=== PATIENT | male | born 1960 | race Two or more races ===

== ENCOUNTER 2018-05-17 14:47 | Emergency (ER) | payer SELFPAY ==
[~2018-05-17] VITALS: Ht 154.9 cm; Wt 111.6 kg
[~2018-05-17 14:47] MED LIST: ASPI-630 PO; ATEN50TA PO; CIPR500T94 PO; CITA10TA8 PO; CLON0.5T11 PO; CLOP75TA PO; DOXY100T PO; HYDR-3164 PO; LISI-334 PO; METR500T PO; MULT1TAB52 PO
[2018-05-17 16:29] VITALS: BP 135/84
--- NOTE | 2018-05-17 17:33 | RAD ---
CHEST PA LATERAL History: PRODUCTIVE COUGH, CHILLS, FEVER TODAY AT DR OFFICE Comparison: January 05, 2016 Findings: 2 views of the chest are submitted. There is mild right infrahilar opacity, possibly mild atelectasis. There is no dependent pleural fluid or pneumothorax. Heart size is upper limits of normal. There is somewhat tortuous thoracic aorta. Impression: 1. There is mild right infrahilar opacity, possibly mild atelectasis. Electronically signed by: Margarito Shane MD (05/17/2018 5:30 PM) [facility]
--- NOTE | 2018-05-17 17:37 | PHYS DOC ---
Past Medical History Past Medical History: CAD, High Cholesterol, Hypertension, [place], Other Additional Past Medical Histor: CARDIAC ARREST Past Surgical History: Angioplasty, Other Additional Past Surgical Histo: rt arm surgery, CARDIAC stent Alcohol Use: Occasionally Drug Use: None Adult General Chief Complaint Chief Complaint: SORE THROAT HPI HPI Patient is a 57 year old male with a history of CAD, hypertension, high cholesterol, who presents today to be evaluated for pneumonia. Patient was seen at an outpatient clinic, he was diagnosed with strep, this send him to the ED to be evaluated for pneumonia. Patient has had a cough and sore throat since Monday. Denies any fever. Denies any nasal congestion. Review of Systems Review of Systems Constitutional: Denies fever or chills [] Eyes: Denies change in visual acuity, redness, or eye pain [] HENT: Reports sore throat. Denies nasal congestion Respiratory: Reports cough, denies shortness of breath [] Cardiovascular: No additional information not addressed in HPI [] GI: Denies abdominal pain, nausea, vomiting, bloody stools or diarrhea [] : Denies dysuria or hematuria [] Musculoskeletal: Denies back pain or joint pain [] Integument: Denies rash or skin lesions [] Neurologic: Denies headache, focal weakness or sensory changes [] All other systems were reviewed and found to be within normal limits, except as documented in this note. Allergies Allergies Allergies Coded Allergies Type Severity Reaction Last Updated Verified Penicillins Allergy Intermediate rash 03/09/15 Yes nitroglycerin Allergy Intermediate bp drops 03/09/15 Yes Physical Exam Physical Exam Constitutional: Well developed, well nourished, no acute distress, non-toxic appearance. [] HENT: Normocephalic, atraumatic, bilateral external ears normal, oropharynx moist, no oral exudates, nose normal. [] +2 Tonsils with mild erythema and exudate bilaterally, midline uvula. +2 anterior cervical adenopathy. Eyes: PERRLA, EOMI, conjunctiva normal, no discharge. [] Neck: Normal range of motion, no tenderness, supple, no stridor. [] Cardiovascular:Heart rate regular rhythm, no murmur [] Lungs & Thorax: Bilateral breath sounds clear to auscultation [] Abdomen: Bowel sounds normal, soft, no tenderness, no masses, no pulsatile masses. [] Skin: Warm, dry, no erythema, no rash. [] Back: No tenderness, no CVA tenderness. [] Extremities: No tenderness, no cyanosis, no clubbing, ROM intact, no edema. [] Neurologic: Alert and oriented X 3, normal motor function, normal sensory function, no focal deficits noted. [] Psychologic: Affect normal, judgement normal, mood normal. [] Current Patient Data Vital Signs Vital Signs Date Time Temp Pulse Resp B/P (MAP) Pulse Ox O2 Delivery O2 Flow Rate FiO2 05/17/18 16:29 98.9 77 18 135/84 (101) 96 Room Air 98.9 EKG EKG [] Radiology/Procedures Radiology/Procedures []PROCEDURE: CHEST PA & LATERAL CHEST PA LATERAL History: PRODUCTIVE COUGH, CHILLS, FEVER TODAY AT DR OFFICE Comparison: January 05, 2016 Findings: 2 views of the chest are submitted. There is mild right infrahilar opacity, possibly mild atelectasis. There is no dependent pleural fluid or pneumothorax. Heart size is upper limits of normal. There is somewhat tortuous thoracic aorta. Impression: 1. There is mild right infrahilar opacity, possibly mild atelectasis. Electronically signed by: Ann Marie Meeks MD (05/17/2018 5:30 PM) [facility] DICTATED and SIGNED BY: ANN MARIE MEEKS MD DATE: 05/17/181729 Course & Med Decision Making Course & Med Decision Making Pertinent Labs and Imaging studies reviewed. (See chart for details) This is a 57-year-old male patient presented to the ED today to be evaluated for pneumonia. Patient was seen at an outpatient clinic, was diagnosed with strep and sent to the ED to be evaluated for pneumonia. Chest x-ray was ordered. Chest x-ray interpreted by radiologist is negative for any acute findings, noted for atelectasis. Patient is afebrile. Patient was discharged with levaquin for the strep infection, instructed to take deep breaths 10 times every hour while awake. Follow-up with primary care doctor next week. Dragon Disclaimer Dragon Disclaimer This electronic medical record was generated, in whole or in part, using a voice recognition dictation system. Departure Departure Impression: Primary Impression: Cough Additional Impression: Acute streptococcal pharyngitis Disposition: HOME, SELF-CARE Condition: STABLE Referrals: UNKNOWN PCP NAME (PCP) follow up in 1-2 weeks with your doctor Patient Instructions: Cough, Adult, [id number], Strep Throat Additional Instructions: You were evaluated in the emergency room, a chest x-ray is negative for pneumonia, we put you on amoxicillin. Ensure you complete it. Use saltwater gargles as needed. Take Tylenol as needed for pain or fever. You can also take Motrin. Follow-up with your doctor next week. Scripts Levofloxacin (LEVAQUIN) 500 Mg Tablet 1 TAB PO DAILY, #7 TAB Prov: MYRA TORRES APRN 05/17/18 Problem Qualifiers MYRA TORRES APRN May 17, 2018 17:37
[2018-05-17] MEDS ORDERED: AZIT250T PO (17:48)
[2018-05-17] MEDS ORDERED: LEVO500T59 PO (17:57)
== END 2018-05-17 18:06 | disposition home or self-care (01) ==
LOC: ER 14:47
DX: J02.0 Streptococcal pharyngitis (principal); B95.5 Unspecified streptococcus as the cause of diseases classified elsewhere; I25.10 Atherosclerotic heart disease of native coronary artery without angina pectoris; E78.00 Pure hypercholesterolemia, unspecified; I10 Essential (primary) hypertension; I25.2 Old myocardial infarction; Z98.61 Coronary angioplasty status; Z88.0 Allergy status to penicillin; Z88.8 Allergy status to other drugs, medicaments and biological substances
CPT/HCPCS: 71046; 99283

== ENCOUNTER 2019-02-04 10:28 | Inpatient (IN) | payer SELFPAY ==
[~2019-02-04] VITALS: Ht 149.9 cm; Wt 109.5 kg
[~2019-02-04 10:28] MED LIST changes: +AZIT250T PO; +CLON-77 PO; -CLON0.5T11 PO; +LEVO500T59 PO
[2019-02-04 11:12] LABS: BASO # 0.1 x10^3/uL (0.0-0.2); BASO % 1 % (0-3); EOS % 1 % (0-3); HEMATOCRIT 50.5 % (39.0-53.0); HEMOGLOBIN 17.2 g/dL (13.0-17.5); LYMPH # 1.5 x10^3/uL (1.0-4.8); LYMPH % 21 % (24-48); MEAN CORPUSCULAR HEMOGLOBIN 30 pg (25-35); MEAN CORPUSCULAR HGB CONC 34 g/dL (31-37); MEAN CORPUSCULAR VOLUME 88 fL (79-100); MONO # 0.9 x10^3/uL (0.0-1.1); MONO % 12 % (0-9); NEUT # 4.6 x10^3/uL (1.8-7.7); NEUT % 65 % (31-73); PLATELET COUNT 239 x10^3/uL (140-400); RED BLOOD COUNT 5.73 x10^6/uL (4.30-5.70); RED CELL DISTRIBUTION WIDTH 15.3 % (11.5-14.5); WHITE BLOOD COUNT 7.1 x10^3/uL (4.0-11.0)
[2019-02-04 11:22] LABS: CALCIUM 9.1 mg/dL (8.5-10.1); CREATININE 0.9 mg/dL (0.7-1.3); GFR 87.3; POTASSIUM 3.7 mmol/L (3.5-5.1)
[2019-02-04 11:29] LABS: ALBUMIN 3.7 g/dL (3.4-5.0); ALBUMIN/GLOBULIN RATIO 0.8 (1.0-1.7); MAGNESIUM 1.9 mg/dL (1.8-2.4); TOTAL BILIRUBIN 0.7 mg/dL (0.2-1.0); TOTAL PROTEIN 8.1 g/dL (6.4-8.2)
--- NOTE | 2019-02-04 11:32 | PHYS DOC ---
Past Medical History Past Medical History: CAD, High Cholesterol, Hypertension, [place], Other Additional Past Medical Histor: CARDIAC ARREST Past Surgical History: Angioplasty, Other Additional Past Surgical Histo: rt arm surgery, CARDIAC stent Alcohol Use: Occasionally Drug Use: None Adult General Chief Complaint Chief Complaint: HYPERTENSION HPI HPI Patient is a 58 year old male patient with history of hypertension, dyslipidemia, coronary artery disease status post angioplasty, morbid obesity and family history of coronary artery disease who presents with complaint of ch est pain and high blood pressure. Patient complaining of intermittent episodes of substernal chest pain that started yesterday afternoon and last for a few seconds without shortness of breath, nausea and vomiting, palpitation. Patient rated his pain as 8/10. Patient states she did not have any chest pain today but his blood pressure was 180s over 100. Patient states he had cystoscopy condition going on and lost his [id number] because of heart attack a few days ago and wants to make sure he is fine. Review of Systems Review of Systems Constitutional: Denies fever or chills [] Eyes: Denies change in visual acuity, redness, or eye pain [] HENT: Denies nasal congestion or sore throat [] Respiratory: Denies cough or shortness of breath [] Cardiovascular: No additional information not addressed in HPI [] GI: Denies abdominal pain, nausea, vomiting, bloody stools or diarrhea [] : Denies dysuria or hematuria [] Musculoskeletal: Denies back pain or joint pain [] Integument: Denies rash or skin lesions [] Neurologic: Denies headache, focal weakness or sensory changes [] Endocrine: Denies polyuria or polydipsia [] All other systems were reviewed and found to be within normal limits, except as documented in this note. Allergies Allergies Allergies Coded Allergies Type Severity Reaction Last Updated Verified Penicillins Allergy Intermediate rash 03/09/15 Yes nitroglycerin Allergy Intermediate bp drops 03/09/15 Yes Physical Exam Physical Exam Constitutional: Well developed, well nourished, no acute distress, non-toxic appearance. [] HENT: Normocephalic, atraumatic, bilateral external ears normal, oropharynx moist, no oral exudates, nose normal. [] Eyes: PERRLA, EOMI, conjunctiva normal, no discharge. [] Neck: Normal range of motion, no tenderness, supple, no stridor. [] Cardiovascular:Heart rate regular rhythm, no murmur [] Lungs & Thorax: Bilateral breath sounds clear to auscultation [] Abdomen: Bowel sounds normal, soft, no tenderness, no masses, no pulsatile masses. [] Skin: Warm, dry, no erythema, no rash. [] Back: No tenderness, no CVA tenderness. [] Extremities: No tenderness, no cyanosis, no clubbing, ROM intact, no edema. [] Neurologic: Alert and oriented X 3, normal motor function, normal sensory function, no focal deficits noted. [] Psychologic: Affect normal, judgement normal, mood normal. [] Current Patient Data Vital Signs Vital Signs Date Time Temp Pulse Resp B/P (MAP) Pulse Ox O2 Delivery O2 Flow Rate FiO2 02/04/19 10:41 98.4 69 20 186/88 (120) 95 Room Air 98.4 Lab Values Laboratory Tests Test 02/04/19 10:55 White Blood Count 7.1 x10^3/uL (4.0-11.0) Red Blood Count 5.73 x10^6/uL (4.30-5.70) H Hemoglobin 17.2 g/dL (13.0-17.5) Hematocrit 50.5 % (39.0-53.0) Mean Corpuscular Volume 88 fL (79-100) Mean Corpuscular Hemoglobin 30 pg (25-35) Mean Corpuscular Hemoglobin Concent 34 g/dL (31-37) Red Cell Distribution Width 15.3 % (11.5-14.5) H Platelet Count 239 x10^3/uL (140-400) Neutrophils (%) (Auto) 65 % (31-73) Lymphocytes (%) (Auto) 21 % (24-48) L Monocytes (%) (Auto) 12 % (0-9) H Eosinophils (%) (Auto) 1 % (0-3) Basophils (%) (Auto) 1 % (0-3) Neutrophils # (Auto) 4.6 x10^3/uL (1.8-7.7) Lymphocytes # (Auto) 1.5 x10^3/uL (1.0-4.8) Monocytes # (Auto) 0.9 x10^3/uL (0.0-1.1) Eosinophils # (Auto) 0.0 x10^3/uL (0.0-0.7) Basophils # (Auto) 0.1 x10^3/uL (0.0-0.2) Prothrombin Time 12.3 SEC (11.7-14.0) Prothrombin Time INR 0.9 (0.8-1.1) Sodium Level 136 mmol/L (136-145) Potassium Level 3.7 mmol/L (3.5-5.1) Chloride Level 101 mmol/L (98-107) Carbon Dioxide Level 30 mmol/L (21-32) Anion Gap 5 (6-14) L Blood Urea Nitrogen 17 mg/dL (8-26) Creatinine 0.9 mg/dL (0.7-1.3) Estimated GFR (Cockcroft-Gault) 87.3 BUN/Creatinine Ratio 19 (6-20) Glucose Level 134 mg/dL (70-99) H Calcium Level 9.1 mg/dL (8.5-10.1) Magnesium Level 1.9 mg/dL (1.8-2.4) Total Bilirubin 0.7 mg/dL (0.2-1.0) Aspartate Amino Transferase (AST) 23 U/L (15-37) Alanine Aminotransferase (ALT) 39 U/L (16-63) Alkaline Phosphatase 98 U/L (46-116) Creatine Kinase 104 U/L (39-308) Troponin I Quantitative < 0.017 ng/mL (0.000-0.055) XJ-Dlh-C-Type Natriuretic Peptide 90 pg/mL (0-124) Total Protein 8.1 g/dL (6.4-8.2) Albumin 3.7 g/dL (3.4-5.0) Albumin/Globulin Ratio 0.8 (1.0-1.7) L Lipase 171 U/L (73-393) Laboratory Tests 02/04/19 10:55 Laboratory Tests 02/04/19 10:55 EKG EKG EKG interpreted by me. EKG at 1051 showed normal sinus rhythm at rate of 63, left fourth axis, nonspecific T-wave abnormalities, no acute ST and T-wave elevation. Radiology/Procedures Radiology/Procedures [][facility] [address] [facility] [place], [place] [id number] IMAGING REPORT Signed PATIENT: BRANDI STRAUSSCCOUNT: [id number] : 1960 LOCATION: ER AGE: 58 SEX: M EXAM STATUS: REG ER ORD. PHYSICIAN: MONIE CRUZ MD REASON: chest pain PROCEDURE: PORTABLE CHEST 1V PORTABLE CHEST 1V Clinical indications: Chest pain. COMPARISON: May 17 2018. Findings: No acute lung infiltrate or pleural effusion or pulmonary edema or lung mass or pneumothorax is seen. The heart size, pulmonary vasculature, mediastinum and both nidhi are unremarkable. Impression: No acute radiographic abnormality is seen. Electronically signed by: Rocael Gray MD (02/04/2019 11:34 AM) [place] [id number] DICTATED and SIGNED BY: ROCAEL GRAY MD DATE: 02/04/19 1134 Course & Med Decision Making Course & Med Decision Making Pertinent Labs and Imaging studies reviewed. (See chart for details) Evaluation of patient in ER showed 58-year-old male patient heart score of 6 presented with complaining of episode of chest pain and elevation of blood pressure. Patient had blood sugar of 180s that gradually decreased without treatment. Patient requiring admission for further evaluation and treatment. Discussed with Dr. Tapia who is in agreement with admission. Discussed findings and plan with patient and family, who acknowledge understanding and agreement. Dragon Disclaimer Dragon Disclaimer This electronic medical record was generated, in whole or in part, using a voice recognition dictation system. Departure Departure Impression: Primary Impression: Acute chest pain Additional Impressions: Accelerated hypertension Morbid obesity Anxiety about health Disposition: 09 ADMITTED INPATIENT (at 1236) Admitting Physician: JINNY (Dr Tapia accepted the admission at 1235) Condition: IMPROVED Referrals: NO PCP (PCP) The HEART Score for CP Pts HEART Score for Chest Pain: HEART Score for Chest Pain Response (Comments) Value History Moderately Suspicious 1 ECG Nonspecific Repolarizatio 1 Age >45 - < 65 1 Risk Factors >3 Risk Factors or Hx CAD 2 Troponin < Normal Limit 0 Total 5 Risk Factors: Risk Factors: DM, Current or recent (<one month) smoker, HTN, HLP, family history of CAD, obesity. Risk Scores: Score 0 - 3: 2.5% MACE over next 6 weeks - Discharge Home Score 4 - 6: 20.3% MACE over next 6 weeks - Admit for Clinical Observation Score 7 - 10: 72.7% MACE over next 6 weeks - Early Invasive Strategies Problem Qualifiers MONIE CRUZ MD Feb 04, 2019 11:32
[2019-02-04 11:35] LABS: PROTHROMBIN TIME PATIENT 12.3 SEC (11.7-14.0)
--- NOTE | 2019-02-04 11:37 | RAD ---
PORTABLE CHEST 1V Clinical indications: Chest pain. COMPARISON: May 17 2018. Findings: No acute lung infiltrate or pleural effusion or pulmonary edema or lung mass or pneumothorax is seen. The heart size, pulmonary vasculature, mediastinum and both nidhi are unremarkable. Impression: No acute radiographic abnormality is seen. Electronically signed by: Yousif Gray MD (02/04/2019 11:34 AM) [facility]
--- NOTE | 2019-02-04 11:42 | EKG ---
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
--- NOTE | 2019-02-04 12:36 | PDOC1 ---
History and Physical Date of Admission Date of Admission DATE: 02/04/19 TIME: 12:35 Identification/Chief Complaint Chief Complaint Chest pain Source Source: Patient History of Present Illness History of Present Illness Mr. Apple is a pleasant 57yo M w/ PMHx HTN, TIA, CAD (prior [place]), prediabetes recently now diagnosed as diabetes who p/w chest pain and left arm pain. Has had intermittent episodes of substernal chest pain that started yesterday afternoon and last for a few seconds. He denies shortness of breath, nausea and vomiting, palpitation. Patient rated his pain as 8/10. Patient states she did not have any chest pain today but his blood pressure was 180s over 100. He is worried because his [id number] because of heart attack a few days ago and wants to make sure he is fine. 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 He also had a TIA 11 months ago and was recently told his prediabetes has progressed to diabetes. CXR clear. EKG NSR with non-specific twave changes. Negative troponin. Admitted for further BP treatment and troponin. Past Medical History Cardiovascular: CAD, HTN, [place], Hyperlipidemia CENTRAL NERVOUS SYSTEM: TIA Psych: Anxiety, Depression Past Surgical History Past Surgical History: Other Family History Family History: Coronary Artery Disease, Diabetes Family History: Parent Social History Smoke: No ALCOHOL: rare Drugs: None Current Medications Current Medications Active Scripts Active Levaquin (Levofloxacin) 500 Mg Tablet 1 Tab PO DAILY Celexa (Citalopram Hydrobromide) 10 Mg Tablet 10 Mg PO DAILY 30 Days [place] 5-325 Tablet (Acetaminophen/Hydrocodone Bitart) 1 Each Tablet 1 Tab PO PRN Q6HRS PRN Reported Lisinopril 20 Mg Tablet 20 Mg PO DAILY Clonazepam 0.5 Mg Tablet 0.5 Tab PO DAILY Clopidogrel (Clopidogrel Bisulfate) 75 Mg Tablet 75 Mg PO DAILY Atenolol 50 Mg Tablet 1 Tab PO BID Aspirin 81 Mg Tab.chew 1 Tab PO DAILY Allergies Allergies: Coded Allergies: Penicillins (Verified Allergy, Intermediate, rash, 03/09/15) nitroglycerin (Verified Allergy, Intermediate, bp drops, 03/09/15) ROS General: YES: Fatigue, Malaise; No: Chills, Night Sweats, Appetite, Other PSYCHOLOGICAL ROS: YES: Anxiety, Depression; No: Behavioral Disorder, Concentration difficultie, Decreased libido, Disorientation, Hallucinations, Hostility, Irritablity, Memory difficulties, Mood Swings, Obsessive thoughts, Physical abuse, Sexual abuse, Sleep d isturbances, Suicidal ideation, Other Eyes: No Blurry vision, No Decreased vision, No Double vision, No Dry eyes, No Excessive tearing, No Eye Pain, No Itchy Eyes, No Loss of vision, No Photophobia, No Scotomata, No Uses contacts, No Uses glasses, No Other HEENT: No: Heacaches, Visual Changes, Hearing change, Nasal congestion, Nasal discharge, Oral lesions, Sinus pain, Sore Throat, Epistaxis, Sneezing, Snoring, Tinnitus, Vertigo, Vocal changes, Other ALLERGY AND IMMUNOLOGY: No: Hives, Insect Bite Sensitivity, Itchy/Watery Eyes, Nasal Congestion, Post Nasal Drip, Seasonal Allergies, Other Hematological and Lymphatic: No: Bleeding Problems, Blood Clots, Blood Transfusions, Brusing, Night Sweats, Pallor, Swollen Lymph Nodes, Other ENDOCRINE: No: Breast Changes, Galactorrhea, Hair Pattern Changes, Hot Flashes, Malaise/lethargy, Mood Swings, Palpitations, Polydipsia/polyuria, Skin Changes, Temperature Intolerance, Unexpected Weight Changes, Other Breast: No New/Changing Breast Lumps, No Nipple changes, No Nipple discharge, No Other Respiratory: No: Cough, Hemoptysis, Orthopnea, Pleuritic Pain, Shortness of breath, SOB with excertion, Sputum Changes, Stridor, Tachypnea, Wheezing, Other Cardiovascular: yes Chest Pain, yes Palpitations; No Orthopnea, No Paroxysmal Noc. Dyspnea, No Edema, No Lt Headedness, No Other Gastrointestinal: No Nausea, No Vomiting, No Abdominal Pain, No Diarrhea, No Constipation, No Melena, No Hematochezia, No Other Genitourinary: No Dysuria, No Frequency, No Incontinence, No Hematuria, No Retention, No Discharge, No Urgency, No Pain, No Flank Pain, No Other, No , No , No , No , No , No , No Musculoskeletal: No Gait Disturbance, No Joint Pain, No Joint Stiffness, No Joint Swelling, No Muscle Pain, No Muscular Weakness, No Pain In:, No Swelling In:, No Other Neurological: No Behavorial Changes, No Bowel/Bladder ControlChng, No Confusion, No Dizziness, No Gait Disturbance, No Headaches, No Impaired Coord/balance, No Memory Loss, No Numbness/Tingling, No Seizures, No Speech Problems, No Tremors, No Visual Changes, No Weakness, No Other Skin: No Dry Skin, No Eczema, No Hair Changes, No Lumps, No Mole Changes, No Mottling, No Nail Changes, No Pruritus, No Rash, No Skin Lesion Changes, No Other, No Acne Physical Exam General: Alert, Oriented X3, Cooperative, No acute distress HEENT: Atraumatic, PERRLA, EOMI, Mucous membr. moist/pink Lungs: Clear to auscultation, Normal air movement Heart: S1S2, RRR, no thrills, no rubs, no gallops, no murmurs Abdomen: Normal bowel sounds, Soft, No tenderness, No hepatosplenomegaly, No masses Rectal Exam: not examined Extremities: No clubbing, No cyanosis, No edema, Normal pulses, No tenderness/swelling Skin: No rashes, No breakdown, No significant lesion Neuro: Normal gait, Normal speech, Strength at 5/5 X4 ext, Normal tone, Sensation intact, Cranial nerves 3-12 NL, Reflexes 2+ Psych/Mental Status: Mental status NL, Mood NL Vitals Vitals Vital Signs Date Time Temp Pulse Resp B/P (MAP) Pulse Ox O2 Delivery O2 Flow Rate FiO2 02/04/19 10:41 98.4 69 20 186/88 (120) 95 Room Air 98.4 Labs Labs Laboratory Tests Test 02/04/19 10:55 White Blood Count 7.1 x10^3/uL (4.0-11.0) Red Blood Count 5.73 x10^6/uL (4.30-5.70) Hemoglobin 17.2 g/dL (13.0-17.5) Hematocrit 50.5 % (39.0-53.0) Mean Corpuscular Volume 88 fL (79-100) Mean Corpuscular Hemoglobin 30 pg (25-35) Mean Corpuscular Hemoglobin Concent 34 g/dL (31-37) Red Cell Distribution Width 15.3 % (11.5-14.5) Platelet Count 239 x10^3/uL (140-400) Neutrophils (%) (Auto) 65 % (31-73) Lymphocytes (%) (Auto) 21 % (24-48) Monocytes (%) (Auto) 12 % (0-9) Eosinophils (%) (Auto) 1 % (0-3) Basophils (%) (Auto) 1 % (0-3) Neutrophils # (Auto) 4.6 x10^3/uL (1.8-7.7) Lymphocytes # (Auto) 1.5 x10^3/uL (1.0-4.8) Monocytes # (Auto) 0.9 x10^3/uL (0.0-1.1) Eosinophils # (Auto) 0.0 x10^3/uL (0.0-0.7) Basophils # (Auto) 0.1 x10^3/uL (0.0-0.2) Prothrombin Time 12.3 SEC (11.7-14.0) Prothromb Time International Ratio 0.9 (0.8-1.1) Sodium Level 136 mmol/L (136-145) Potassium Level 3.7 mmol/L (3.5-5.1) Chloride Level 101 mmol/L (98-107) Carbon Dioxide Level 30 mmol/L (21-32) Anion Gap 5 (6-14) Blood Urea Nitrogen 17 mg/dL (8-26) Creatinine 0.9 mg/dL (0.7-1.3) Estimated GFR (Cockcroft-Gault) 87.3 BUN/Creatinine Ratio 19 (6-20) Glucose Level 134 mg/dL (70-99) Calcium Level 9.1 mg/dL (8.5-10.1) Magnesium Level 1.9 mg/dL (1.8-2.4) Total Bilirubin 0.7 mg/dL (0.2-1.0) Aspartate Amino Transf (AST/SGOT) 23 U/L (15-37) Alanine Aminotransferase (ALT/SGPT) 39 U/L (16-63) Alkaline Phosphatase 98 U/L (46-116) Creatine Kinase 104 U/L (39-308) Troponin I Quantitative < 0.017 ng/mL (0.000-0.055) LW-Wmp-Y-Type Natriuretic Peptide 90 pg/mL (0-124) Total Protein 8.1 g/dL (6.4-8.2) Albumin 3.7 g/dL (3.4-5.0) Albumin/Globulin Ratio 0.8 (1.0-1.7) Lipase 171 U/L (73-393) Laboratory Tests Test 02/04/19 10:55 White Blood Count 7.1 x10^3/uL (4.0-11.0) Red Blood Count 5.73 x10^6/uL (4.30-5.70) Hemoglobin 17.2 g/dL (13.0-17.5) Hematocrit 50.5 % (39.0-53.0) Mean Corpuscular Volume 88 fL (79-100) Mean Corpuscular Hemoglobin 30 pg (25-35) Mean Corpuscular Hemoglobin Concent 34 g/dL (31-37) Red Cell Distribution Width 15.3 % (11.5-14.5) Platelet Count 239 x10^3/uL (140-400) Neutrophils (%) (Auto) 65 % (31-73) Lymphocytes (%) (Auto) 21 % (24-48) Monocytes (%) (Auto) 12 % (0-9) Eosinophils (%) (Auto) 1 % (0-3) Basophils (%) (Auto) 1 % (0-3) Neutrophils # (Auto) 4.6 x10^3/uL (1.8-7.7) Lymphocytes # (Auto) 1.5 x10^3/uL (1.0-4.8) Monocytes # (Auto) 0.9 x10^3/uL (0.0-1.1) Eosinophils # (Auto) 0.0 x10^3/uL (0.0-0.7) Basophils # (Auto) 0.1 x10^3/uL (0.0-0.2) Prothrombin Time 12.3 SEC (11.7-14.0) Prothromb Time International Ratio 0.9 (0.8-1.1) Sodium Level 136 mmol/L (136-145) Potassium Level 3.7 mmol/L (3.5-5.1) Chloride Level 101 mmol/L (98-107) Carbon Dioxide Level 30 mmol/L (21-32) Anion Gap 5 (6-14) Blood Urea Nitrogen 17 mg/dL (8-26) Creatinine 0.9 mg/dL (0.7-1.3) Estimated GFR (Cockcroft-Gault) 87.3 BUN/Creatinine Ratio 19 (6-20) Glucose Level 134 mg/dL (70-99) Calcium Level 9.1 mg/dL (8.5-10.1) Magnesium Level 1.9 mg/dL (1.8-2.4) Total Bilirubin 0.7 mg/dL (0.2-1.0) Aspartate Amino Transf (AST/SGOT) 23 U/L (15-37) Alanine Aminotransferase (ALT/SGPT) 39 U/L (16-63) Alkaline Phosphatase 98 U/L (46-116) Creatine Kinase 104 U/L (39-308) Troponin I Quantitative < 0.017 ng/mL (0.000-0.055) IP-Hah-R-Type Natriuretic Peptide 90 pg/mL (0-124) Total Protein 8.1 g/dL (6.4-8.2) Albumin 3.7 g/dL (3.4-5.0) Albumin/Globulin Ratio 0.8 (1.0-1.7) Lipase 171 U/L (73-393) Images Images CXR - No acute radiographic abnormality is seen. VTE Prophylaxis Ordered VTE Prophylaxis Devices: Yes VTE Pharmacological Prophylaxi: Yes Assessment/Plan Assessment/Plan A/P: Chest pain - with h/o CAD, high risk ACS. will place on telemetry, restart meds. Consult cardiology CAD - s/p 2012 stenting to circ. On plavix. 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
[2019-02-04 13:30] VITALS: BP 174/91
[2019-02-04 15:00] VITALS: BP 144/88
[2019-02-04] MEDS ORDERED: METF500T16 PO (15:14)
[2019-02-04] MEDS ORDERED: clonazePAM 0.5 MG TABLET PO PRN (16:45)
[2019-02-04] MEDS: CLOPIDOGREL BISULFATE 75 MG TABLET PO SCH (17:00)
[2019-02-04] MEDS: metFORMIN 500 MG TABLET PO SCH (17:00)
[2019-02-04] MEDS ORDERED: HYDR12.575 PO (17:01)
[2019-02-04] MEDS ORDERED: LISINOPRIL 20 MG TABLET PO ONE (17:30)
[2019-02-04] MEDS ORDERED: hydroCHLOROthiazide 25 MG TABLET PO ONE (17:30)
[2019-02-04] MEDS: ASPIRIN CHEWABLE 81 MG TABLET. PO SCH (17:38)
--- NOTE | 2019-02-04 18:14 | PDOC2 ---
CARDIOLOGY CONSULT NOTE CHEIF COMPLAINT: Chest discomfort HPI: 58-year-old man with past medical history as noted below who presents to the hospital in the setting of some chest discomfort and elevated blood pressure. He unfortunately had to deal with significant stress at home with the of his [id number]. Due to concern for his own health he presented to the hospital. He denies any recent exertional angina, dyspnea, orthopnea or PND. No palpitations or syncope. Upon arrival to the ER his systolic blood pressure was noted to be in the 170s and 180s and he was admitted for further evaluation and treatment. Initial EKG and enzymes are unremarkable. Patient reports compliance with his medications. He reports he currently does not have insurance and has been seeing somebody or free clinic locally. PMHX: 1. Coronary artery disease status post PCI to the left circumflex in the setting of an acute coronary syndrome several years ago at [facility] with a bare metal stents 2. Hypertension 3. Dyslipidemia 4. Morbid obesity 5. CVA SOCHX: No current alcohol, tobacco or illicit drug use. He is . 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[employer] FAMHX: Noncontributory CURRENT MEDS: Current Medications Medications (Trade) Dose Ordered Sig/Cecile Route PRN Reason Start Time Stop Time Status Last Admin Dose Admin Aspirin (Children'S Aspirin) 81 mg DAILY08 PO 02/04/19 17:00 02/04/19 17:38 ALLERGIES: Allergies Coded Allergies Type Severity Reaction Last Updated Verified Penicillins Allergy Intermediate rash 03/09/15 Yes nitroglycerin Allergy Intermediate bp drops 03/09/15 Yes ROS: Negative unless otherwise mentioned above in history of present illness PHYSICAL EXAM: Vital Signs/I&O: Vital Signs Date Time Temp Pulse Resp B/P (MAP) Pulse Ox O2 Delivery O2 Flow Rate FiO2 02/04/19 15:00 98.5 59 18 144/88 (106) 95 Room Air 98.5 Physical Exam: GEN.: No apparent distress. Alert and oriented. HEENT: Head is normocephalic, atraumatic NECK: Supple. LUNGS: Clear to auscultation. HEART: RRR, S1, S2 present. Peripheral pulses intact ABDOMEN: Soft, nontender. Positive bowel sounds. EXTREMITIES: Without any cyanosis. NEUROLOGIC: Normal speech, normal tone PSYCHIATRIC: Normal affect, normal mood. SKIN: No ulcerations DIAGNOSTIC TESTING: Troponin, EKG and BNP are within normal limits Echo in February 2018 revealed normal LV function without any significant wall motion or valvular abnormalities Cardiac catheterization in 2012 revealed patent left circumflex stent with a left dominant system and a small nondominant right coronary artery. He did not have any significant residual stenosis ASSESSMENT: 1. Atypical chest pain likely secondary to stress with multiple cardiovascular comorbidities as noted above. PLAN: 1. We will increase his lisinopril to 40 mg daily and determine blood pressure over the next 12 hours. If stable overnight may be discharged safely tomorrow with follow-up with his primary care physician. No further cardiac testing necessary at this time. Thank you for this consultation. Please call with any further questions. JOHNATHAN HOLDER MD Feb 04, 2019 18:14
[2019-02-04 19:11] VITALS: BP 149/90
[2019-02-04] MEDS: ATENOLOL 50 MG TABLET. PO SCH (21:37)
[2019-02-04] MEDS: LISINOPRIL 20 MG TABLET PO SCH (21:37)
[2019-02-04 22:31] VITALS: BP 136/84
[2019-02-05 02:58] VITALS: BP 140/76
[2019-02-05 07:00] VITALS: BP 145/92
[2019-02-05] MEDS: ASPIRIN CHEWABLE 81 MG TABLET. PO SCH (08:00)
[2019-02-05] MEDS: ATENOLOL 50 MG TABLET. PO SCH (08:41)
[2019-02-05] MEDS: LISINOPRIL 20 MG TABLET PO SCH (08:41)
[2019-02-05] MEDS: CLOPIDOGREL BISULFATE 75 MG TABLET PO SCH (08:41)
[2019-02-05] MEDS: metFORMIN 500 MG TABLET PO SCH (08:41)
[2019-02-05] MEDS ORDERED: hydroCHLOROthiazide 25 MG TABLET PO SCH (09:00)
[2019-02-05 11:07] VITALS: BP 146/92
--- NOTE | 2019-02-05 11:13 | NUR ---
SS following for discharge planning. SS reviewed pt chart. Pt is self pay pt. HCFS following for self pay status. Pt is from home and is currently on room air. SS will continue to follow for discharge planning.
[2019-02-05] MEDS ORDERED: HYDR-2145 PO (11:46)
[2019-02-05] MEDS ORDERED: ATEN50TA PO (11:46)
[2019-02-05] MEDS ORDERED: CLOP75TA PO (11:46)
[2019-02-05] MEDS ORDERED: METF500T16 PO (11:46)
[2019-02-05] MEDS ORDERED: LISI-334 PO (11:46)
--- NOTE | 2019-02-05 12:16 | PDOC3 ---
Discharge Summary Visit Information Date of Admission: Feb 04, 2019 Date of Discharge: Feb 05, 2019 Admitting Diagnosis: Accelerated HTN Final Diagnosis Problems Medical Problems: (1) Accelerated hypertension Status: Acute (2) Acute chest pain Status: Acute (3) Anxiety about health Status: Acute (4) Morbid obesity Status: Acute Brief Hospital Course Allergies Allergies Coded Allergies Type Severity Reaction Last Updated Verified Penicillins Allergy Intermediate rash 03/09/15 Yes nitroglycerin Allergy Intermediate bp drops 03/09/15 Yes Vital Signs Vital Signs Date Time Temp Pulse Resp B/P (MAP) Pulse Ox O2 Delivery O2 Flow Rate FiO2 02/05/19 11:07 98.2 62 18 146/92 (110) 92 Room Air 98.2 Lab Results Laboratory Tests Test 02/04/19 10:55 02/04/19 15:35 02/04/19 18:50 02/05/19 07:14 White Blood Count 7.1 x10^3/uL (4.0-11.0) Red Blood Count 5.73 x10^6/uL (4.30-5.70) Hemoglobin 17.2 g/dL (13.0-17.5) Hematocrit 50.5 % (39.0-53.0) Mean Corpuscular Volume 88 fL (79-100) Mean Corpuscular Hemoglobin 30 pg (25-35) Mean Corpuscular Hemoglobin Concent 34 g/dL (31-37) Red Cell Distribution Width 15.3 % (11.5-14.5) Platelet Count 239 x10^3/uL (140-400) Neutrophils (%) (Auto) 65 % (31-73) Lymphocytes (%) (Auto) 21 % (24-48) Monocytes (%) (Auto) 12 % (0-9) Eosinophils (%) (Auto) 1 % (0-3) Basophils (%) (Auto) 1 % (0-3) Neutrophils # (Auto) 4.6 x10^3/uL (1.8-7.7) Lymphocytes # (Auto) 1.5 x10^3/uL (1.0-4.8) Monocytes # (Auto) 0.9 x10^3/uL (0.0-1.1) Eosinophils # (Auto) 0.0 x10^3/uL (0.0-0.7) Basophils # (Auto) 0.1 x10^3/uL (0.0-0.2) Prothrombin Time 12.3 SEC (11.7-14.0) Prothromb Time International Ratio 0.9 (0.8-1.1) Sodium Level 136 mmol/L (136-145) Potassium Level 3.7 mmol/L (3.5-5.1) Chloride Level 101 mmol/L (98-107) Carbon Dioxide Level 30 mmol/L (21-32) Anion Gap 5 (6-14) Blood Urea Nitrogen 17 mg/dL (8-26) Creatinine 0.9 mg/dL (0.7-1.3) Estimated GFR (Cockcroft-Gault) 87.3 BUN/Creatinine Ratio 19 (6-20) Glucose Level 134 mg/dL (70-99) Calcium Level 9.1 mg/dL (8.5-10.1) Magnesium Level 1.9 mg/dL (1.8-2.4) Total Bilirubin 0.7 mg/dL (0.2-1.0) Aspartate Amino Transf (AST/SGOT) 23 U/L (15-37) Alanine Aminotransferase (ALT/SGPT) 39 U/L (16-63) Alkaline Phosphatase 98 U/L (46-116) Creatine Kinase 104 U/L (39-308) Troponin I Quantitative < 0.017 ng/mL (0.000-0.055) < 0.017 ng/mL (0.000-0.055) < 0.017 ng/mL (0.000-0.055) LC-Efj-J-Type Natriuretic Peptide 90 pg/mL (0-124) Total Protein 8.1 g/dL (6.4-8.2) Albumin 3.7 g/dL (3.4-5.0) Albumin/Globulin Ratio 0.8 (1.0-1.7) Lipase 171 U/L (73-393) Glucose (Fingerstick) 132 mg/dL (70-99) Laboratory Tests Test 02/04/19 15:35 02/04/19 18:50 02/05/19 07:14 Troponin I Quantitative < 0.017 ng/mL (0.000-0.055) < 0.017 ng/mL (0.000-0.055) Glucose (Fingerstick) 132 mg/dL (70-99) [facility] Hospital Course Mr. Apple is a pleasant 57yo M w/ PMHx HTN, TIA, CAD (prior OH), pre diabetes recently now diagnosed as diabetes who p/w chest pain and left arm pain. Has had intermittent episodes of substernal chest pain that started yesterday afternoon and last for a few seconds. He denies shortness of breath, nausea and vomiting, palpitation. Patient rated his pain as 8/10. Patient states she did not have any chest pain today but his blood pressure was 180s over 100. He is worried because his [id number] because of heart attack a few days ago and wants to make sure he is fine. 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 He also had a TIA 11 months ago and was recently told his prediabetes has progressed to diabetes. CXR clear. EKG NSR with non-specific twave changes. Negative troponin. Admitted for further BP treatment and troponins. Troponins were negative. BP improved with increasing dose and frequency of lisinopril. Will give free clinic lists and [facility] information. Physical Exam General: Alert, Oriented X3, Cooperative, No acute distress HEENT: Atraumatic, PERRLA, EOMI, Mucous membr. moist/pink Lungs: Clear to auscultation, Normal air movement Heart: S1S2, RRR, no thrills, no rubs, no gallops, no murmurs Abdomen: Normal bowel sounds, Soft, No tenderness, No hepatosplenomegaly, No masses Rectal Exam: not examined Extremities: No clubbing, No cyanosis, No edema, Normal pulses, No tenderness /swelling Skin: No rashes, No breakdown, No significant lesion Neuro: Normal gait, Normal speech, Strength at 5/5 X4 ext, Normal tone, Sensation intact, Cranial nerves 3-12 NL, Reflexes 2+ Psych/Mental Status: Mental status NL, Mood NL Vital Signs Date Time Temp Pulse Resp B/P (MAP) Pulse Ox O2 Delivery O2 Flow Rate FiO2 02/04/19 10:41 98.4 69 20 186/88 (120) 95 Room Air 98.4 CXR - No acute radiographic abnormality is seen. A/P: Chest pain - with h/o CAD, high risk ACS. will place on telemetry, restart meds. Consult cardiology CAD - s/p 2013 stenting to circ. On plavix. 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 and he is uninsured currently Depressed mood - he has improved mood lately, does not wish for meds Prediabetes/DM - sliding scale, metformin HTN - cont home meds Hypokalemia - replace Obesity - counseled on weight loss FEN - ADA diet PPX - heparin FULL CODE Dispo - restart meds, likely home in AM Discharge Information Condition at Discharge: Improved Follow Up: Weeks (1) Disposition/Orders: D/C to Home Scheduled Aspirin (Aspirin) 81 Mg Tab.chew, 1 TAB PO DAILY, #30 Ref 3 (Reported) Entered as Reported by: KIMBERLY DUARTE on 03/10/15 0005 Last Action: Continued on 02/04/191641 by ROSETTE BUCK MD Atenolol (Atenolol) 50 Mg Tablet, 1 TAB PO BID for blood pressure for 30 Days, #60 Ref 2 Prescribed by: ORSETTE BUCK MD on 02/05/19 1146 Clopidogrel Bisulfate (Clopidogrel) 75 Mg Tablet, 75 MG PO DAILY for prevention of blood clots for 30 Days, #30 Ref 2 Prescribed by: ROSETTE BUCK MD on 02/05/19 1146 Hydrochlorothiazide (Hydrochlorothiazide Tablet ) 25 Mg Tablet, 25 MG PO DAILY for HTN for 30 Days, #30 Ref 2 Prescribed by: ROSETTE BUCK MD on 02/05/19 1146 Lisinopril (Lisinopril) 20 Mg Tablet, 20 MG PO BID for hypertension for 30 Days, #60 Ref 2 Prescribed by: ROSETTE BUCK MD on 02/05/19 1146 Metformin Hcl (Metformin Hcl) 500 Mg Tablet, 500 MG PO BID for ANTI-DIABETIC for 30 Days, #60 Ref 2 Prescribed by: ROSETTE BUCK MD on 02/05/19 1146 Discontinued Medications Clonazepam (Clonazepam ) 0.5 Mg Tablet, 0.5 TAB PO DAILY, #30 (Reported) Entered as Reported by: VIKTORIYA GRAVES on 03/10/15 1141 Last Action: Continued on 02/04/191641 by ROSETTE BUCK MD Hydrochlorothiazide (Hydrochlorothiazide Capsule ) 12.5 Mg Capsule, 25 MG PO DAILY for DIURETIC, Ref 0 (Reported) Entered as Reported by: Hal Gray on 02/04/191700 Last Action: Continued on 02/04/191713 by ROSETTE Ardon MD Feb 05, 2019 12:16
--- NOTE | 2019-02-05 12:35 | NUR ---
DISCHARGED PATIENT TO HOME. PIV AND HEART MONITOR REMOVED. ESCORTED PATIENT INTO A PRIVATE VEHICLE.
== END 2019-02-05 12:45 | disposition home or self-care (01) | DRG 313 ==
LOC: ER 10:28 → 2 NORTH 11:30
PROVIDERS: ADMIT Internal Medicine; ATTEND Internal Medicine
DX: R07.89 Other chest pain (principal); Z68.42 Body mass index [BMI] 45.0-49.9, adult; I25.10 Atherosclerotic heart disease of native coronary artery without angina pectoris; F32.9 Major depressive disorder, single episode, unspecified; I10 Essential (primary) hypertension; E11.9 Type 2 diabetes mellitus without complications; E66.01 Morbid (severe) obesity due to excess calories; E78.00 Pure hypercholesterolemia, unspecified; E78.5 Hyperlipidemia, unspecified; E87.6 Hypokalemia; F41.9 Anxiety disorder, unspecified; I25.2 Old myocardial infarction; Z82.49 Family history of ischemic heart disease and other diseases of the circulatory system; Z83.3 Family history of diabetes mellitus; Z86.73 Personal history of transient ischemic attack (TIA), and cerebral infarction without residual deficits; Z95.5 Presence of coronary angioplasty implant and graft; Z86.74 Personal history of sudden cardiac arrest
CPT/HCPCS: 36415; 71045; 80053; 82550; 82962; 83690; 83735; 83880; 84484; 85025; 85610; 93005; 99285-25; G0378

== ENCOUNTER 2019-08-29 17:11 | Emergency (ER) | payer SELFPAY ==
[~2019-08-29] VITALS: Ht 152.4 cm; Wt 95.4 kg
[~2019-08-29 17:11] MED LIST changes: +HYDR-2145 PO; +HYDR12.575 PO; +METF500T16 PO; +MULT-445 PO; -MULT1TAB52 PO
[2019-08-29 18:16] LABS: BASO # 0.1 x10^3/uL (0.0-0.2); BASO % 1 % (0-3); EOS # 0.1 x10^3/uL (0.0-0.7); EOS % 1 % (0-3); HEMATOCRIT 48.1 % (39.0-53.0); HEMOGLOBIN 16.8 g/dL (13.0-17.5); LYMPH # 1.7 x10^3/uL (1.0-4.8); LYMPH % 19 % (24-48); MEAN CORPUSCULAR HEMOGLOBIN 31 pg (25-35); MEAN CORPUSCULAR HGB CONC 35 g/dL (31-37); MEAN CORPUSCULAR VOLUME 88 fL (79-100); MONO # 0.9 x10^3/uL (0.0-1.1); MONO % 10 % (0-9); NEUT # 6.3 x10^3/uL (1.8-7.7); NEUT % 70 % (31-73); PLATELET COUNT 202 x10^3/uL (140-400); RED BLOOD COUNT 5.46 x10^6/uL (4.30-5.70); RED CELL DISTRIBUTION WIDTH 14.8 % (11.5-14.5)
--- NOTE | 2019-08-29 18:24 | PHYS DOC ---
Past Medical History Past Medical History: CAD, High Cholesterol, Hypertension, OH, Other Additional Past Medical Histor: CARDIAC ARREST Past Surgical History: Angioplasty, Other Additional Past Surgical Histo: rt arm surgery, CARDIAC stent Smoking Status: Former Smoker Alcohol Use: Occasionally Drug Use: None General Adult EDM: Chief Complaint: HYPERTENSION HPI: HPI: Patient is a 59 year old male who presents with very stressed and going through a divorce. He states today that he feels like his blood pressure was getting high and he was having pain in the back of his head and some dizziness. He states every now and then he has some chest pain but does not currently have chest pain and the last time was 2 weeks ago. He currently does not have any pain, headache, numbness or tingling, or dizziness. Patient states that he currently does not feel dizzy. Patient states he also has some tingling in his feet bilaterally but does not have that anymore either. States he has been eating very poorly lately because he does not know how to cook. Patient states all of his symptoms had resolved before he even came to the emergency room. Patient denies vision changes, chest pain, shortness of air, headache, dizziness, numbness or tingling, abdominal pain, nausea, vomiting, diarrhea, fever, cough, extremity edema. Patient states he is really just here to have his blood pressure checked to make sure it is okay. Review of Systems: Review of Systems: Constitutional: Denies fever or chills. [] Eyes: Denies change in visual acuity. [] HENT: Denies nasal congestion or sore throat. [] Respiratory: Denies cough or shortness of breath. [] Cardiovascular: Denies chest pain or edema. [] GI: Denies abdominal pain, nausea, vomiting, bloody stools or diarrhea. [] : Denies dysuria. [] Musculoskeletal: Denies back pain or joint pain. [] Integument: Denies rash. [] Neurologic: headache, dizziness, tingling in bilateral feet, denies focal weakness or sensory changes. [] Endocrine: Denies polyuria or polydipsia. [] Lymphatic: Denies swollen glands. [] Psychiatric: Denies depression or anxiety. [] Heart Score: Risk Factors: Risk Factors: DM, Current or recent (<one month) smoker, HTN, HLP, family history of CAD, obesity. Risk Scores: Score 0 - 3: 2.5% MACE over next 6 weeks - Discharge Home Score 4 - 6: 20.3% MACE over next 6 weeks - Admit for Clinical Observation Score 7 - 10: 72.7% MACE over next 6 weeks - Early Invasive Strategies Allergies: Allergies: Allergies Coded Allergies Type Severity Reaction Last Updated Verified Penicillins Allergy Intermediate rash 03/09/15 Yes nitroglycerin Allergy Intermediate bp drops 03/09/15 Yes Physical Exam: PE: Constitutional: Well developed, well nourished, no acute distress, non-toxic appearance. [] HENT: Normocephalic, atraumatic, bilateral external ears normal, oropharynx moist, no oral exudates, nose normal. [] Eyes: PERRLA, EOMI, conjunctiva normal, no discharge. [] Neck: Normal range of motion, no tenderness, supple, no stridor. [] Cardiovascular:Heart rate regular rhythm, no murmur [] Lungs & Thorax: Bilateral breath sounds clear to auscultation [] Abdomen: Bowel sounds normal, soft, no tenderness, no masses, no pulsatile mass es. [] Skin: Warm, dry, no erythema, no rash. [] Back: No tenderness, no CVA tenderness. [] Extremities: No tenderness, no cyanosis, no clubbing, ROM intact, bilateral lower extremity 2+ edema. [] Neurologic: Alert and oriented X 3, normal motor function, normal sensory function, no focal deficits noted. [] Psychologic: Affect normal, judgement normal, mood normal. [] EKG: EK and read by Dr Love as Sinus Rhythm and no STEMI[] Radiology/Procedures: Radiology/Procedures: [] Impression: [facility] [address] [place] [address] IMAGING REPORT Signed PATIENT: AVINASH STRAUSS: [id number] : 1960 LOCATION: ER AGE: 59 SEX: M EXAM STATUS: REG ER ORD. PHYSICIAN: CONNOR FAUST APRN REASON: DIZZINESS PROCEDURE: PORTABLE CHEST 1V AP chest x-ray HISTORY: Dizziness. COMPARISON: Chest x-ray February 04, 2019. FINDINGS: Heart size normal. Mild tortuosity the thoracic aorta silhouette stable. No pneumothorax, pulmonary opacities or pleural effusions. The bones are unremarkable. IMPRESSION: No acute process. Electronically signed by: Josse Woodward MD (08/29/2019 6:58 PM) [facility] DICTATED and SIGNED BY: JOSSE WOODWARD MD DATE: 08/29/191857 [facility] [address] [place] [address] IMAGING REPORT Signed PATIENT: ALICIA STRAUSSOUNT: [id number] : 1960 LOCATION: ER AGE: 59 SEX: M EXAM STATUS: REG ER ORD. PHYSICIAN: CONNOR FAUST APRN REASON: DIZZINESS PROCEDURE: CT HEAD WO CONTRAST CT head without contrast PQRS statement: CT scans at this facility use dose reduction including either automated exposure control, iterative reconstructions, and /or weight based radiation dosing via mA and kV modification when appropriate to reduce radiation dose to as low as reasonably achievable. COMPARISON: CT head March 08, 2018. HISTORY: Dizziness. FINDINGS: No intracranial hemorrhage, mass, hydrocephalus, extra-axial fluid collections or infarction. 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 No acute ischemic change evident. Orbits, mastoids, paranasal sinuses and bones are unremarkable. IMPRESSION: No acute abnormality. Electronically signed by: Josse Woodward MD (08/29/2019 6:54 PM) [facility] DICTATED and SIGNED BY: JOSSE WOODWARD MD DATE: 08/29/191853 Course & Med Decision Making: Course & Med Decision Making Pertinent Labs and Imaging studies reviewed. (See chart for details) Alert and oriented. Speaks in full complete sentences. Vital signs are within normal limits. Ambulatory with a steady gait. Patient has bilateral lower extremity 2+ edema. Patient states this is normal for him. Abdomen soft and nontender. PERRLA. Negative NIH. Patient has a history of OH, hypertension, high cholesterol, CAD, cardiac arrest. He currently takes Plavix, atenolol, hydrochlorothiazide, lisinopril and metformin. I did offer the patient admission to just watch him overnight and he states that he wants to go home because he has a small dog at home he needs to take care of. He states will come back if anything changes. [] Cam Disclaimer: Cam Disclaimer: This electronic medical record was generated, in whole or in part, using a voice recognition dictation system. NIHSS Stroke Scale NIH Stroke Scale: NIH Stroke Scale Response (Comments) Value Level of Consciousness: 0 Alert/Responsive 0 LOC Questions: 0 Answers both correctly 0 LOC Commands: 0 Performs both tasks 0 Best Gaze: 0 Normal 0 Visual: 0 No visual loss 0 Facial Palsy: 0 Normal, symmetrical 0 Motor - Left Arm 0 No drift 0 Motor - Right Arm 0 No drift 0 Motor - Left Leg 0 No drift 0 Motor: Right Leg 0 No drift 0 Limb Ataxia: 0 Absent 0 Sensory: 0 No loss 0 Best Language: 0 Normal 0 Dysathria: 0 Normal 0 Total 0 Departure Departure Impression: Primary Impression: High blood pressure Qualified Codes: I10 - Essential (primary) hypertension Disposition: HOME, SELF-CARE Condition: STABLE Referrals: NO PCP (PCP) Patient Instructions: 1800 Calorie Diet for Diabetes Meal Planning, Cardiac Diet, Hypertension Additional Instructions: Follow-up with your primary care provider. Take your medications as prescribed. Justicifation of Admission Dx: Justifications for Admission: Justification of Admission Dx: N/A CONNOR FAUST APRN Aug 29, 2019 18:24
[2019-08-29 18:25] LABS: PROTHROMBIN TIME PATIENT 12.5 SEC (11.7-14.0)
[2019-08-29 18:28] LABS: CALCIUM 9.1 mg/dL (8.5-10.1); CREATININE 1.4 mg/dL (0.7-1.3); GFR 52.2; POTASSIUM 3.4 mmol/L (3.5-5.1)
[2019-08-29 18:33] LABS: ALBUMIN 3.7 g/dL (3.4-5.0); ALBUMIN/GLOBULIN RATIO 0.9 (1.0-1.7); TOTAL BILIRUBIN 0.4 mg/dL (0.2-1.0); TOTAL PROTEIN 7.8 g/dL (6.4-8.2)
[2019-08-29 18:45] LABS: BILIRUBIN,URINE NEGATIVE (NEG); CLARITY,URINE CLEAR; COLOR,URINE YELLOW; NITRITE,URINE NEGATIVE (NEG); PH,URINE 5.5 (<5.0-8.0); PROTEIN,URINE NEGATIVE (NEG-TRACE); UROBILINOGEN,URINE 0.2 mg/dL (0.2 mg/dL)
[2019-08-29 18:48] LABS: AMPHETAMINE/METHAMPHETAMINE NEG (NEG); BARBITURATES NEG (NEG); BENZODIAZEPINES NEG (NEG); CANNABINOIDS NEG (NEG); COCAINE NEG (NEG); METHADONE NEG (NEG); OPIATES NEG (NEG); PHENCYCLIDINE NEG (NEG)
[2019-08-29 18:51] LABS: BACTERIA,URINE 0 /HPF (0-FEW); RBC,URINE OCC /HPF (0-2); WBC,URINE 0 /HPF (0-4)
--- NOTE | 2019-08-29 18:57 | RAD ---
CT head without contrast PQRS statement: CT scans at this facility use dose reduction including either automated exposure control, iterative reconstructions, and /or weight based radiation dosing via mA and kV modification when appropriate to reduce radiation dose to as low as reasonably achievable. COMPARISON: CT head March 08, 2018. HISTORY: Dizziness. FINDINGS: No intracranial hemorrhage, mass, hydrocephalus, extra-axial fluid collections or infarction. 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 No acute ischemic change evident. Orbits, mastoids, paranasal sinuses and bones are unremarkable. IMPRESSION: No acute abnormality. Electronically signed by: Aki Woodward MD (08/29/2019 6:54 PM) [facility]
--- NOTE | 2019-08-29 19:01 | RAD ---
AP chest x-ray HISTORY: Dizziness. COMPARISON: Chest x-ray February 04, 2019. FINDINGS: Heart size normal. Mild tortuosity the thoracic aorta silhouette stable. No pneumothorax, pulmonary opacities or pleural effusions. The bones are unremarkable. IMPRESSION: No acute process. Electronically signed by: Aki Woodward MD (08/29/2019 6:58 PM) [facility]
[2019-08-29 19:30] VITALS: BP 144/76
== END 2019-08-29 19:40 | disposition home or self-care (01) ==
LOC: ER 17:11
DX: I10 Essential (primary) hypertension (principal); R51 Headache; R42 Dizziness and giddiness; E78.00 Pure hypercholesterolemia, unspecified; I25.2 Old myocardial infarction; I25.10 Atherosclerotic heart disease of native coronary artery without angina pectoris; Z87.891 Personal history of nicotine dependence; Z95.5 Presence of coronary angioplasty implant and graft; Z88.0 Allergy status to penicillin; Z88.8 Allergy status to other drugs, medicaments and biological substances
CPT/HCPCS: 36415; 70450; 71045; 80053; 80307; 81001; 83880; 84484; 85025; 85610; 99285-25

== ENCOUNTER 2019-09-03 13:38 | Emergency (ER) | payer SELFPAY ==
[~2019-09-03] VITALS: Ht 152.4 cm; Wt 95.0 kg
[2019-09-03 14:11] VITALS: BP 166/89
--- NOTE | 2019-09-03 14:26 | PHYS DOC ---
Past Medical History Past Medical History: CAD, Diabetes-Type II, High Cholesterol, Hypertension, [place], Other Additional Past Medical Histor: CARDIAC ARREST Past Surgical History: Angioplasty, Other Additional Past Surgical Histo: rt arm surgery, CARDIAC stent Smoking Status: Former Smoker Alcohol Use: Occasionally Drug Use: None General Adult EDM: Chief Complaint: LOWER EXT PAIN HPI: HPI: Patient is a 59 year old morbidly obese, anxious male who presents with right knee pain for weeks. He states especially if he bends the knee it hurts. He states he is also put on a lot of weight. He states that it is sharp and shooting from the knee down to his feet. He rates his pain a 6 out of 10. It is worse with movement. She is currently on Plavix. Patient has had a heart attack in the past and he is afraid that he will get a clot in his leg. He is ambulatory with a steady gait. Patient denies shortness of breath, chest pain, headache, dizziness, abdominal pain, vomiting, nausea, vision changes, syncope. Review of Systems: Review of Systems: Constitutional: Denies fever or chills. [] Eyes: Denies change in visual acuity. [] HENT: Denies nasal congestion or sore throat. [] Respiratory: Denies cough or shortness of breath. [] Cardiovascular: Denies chest pain or edema. [] GI: Denies abdominal pain, nausea, vomiting, bloody stools or diarrhea. [] : Denies dysuria. [] Musculoskeletal: Denies back pain. Right knee sharp and shooting to foot florian int pain. [] Integument: Denies rash. Left arm falls asleep when he has it raised for too long talking on the phone. [] Neurologic: Denies headache, focal weakness or sensory changes. [] Endocrine: Denies polyuria or polydipsia. [] Lymphatic: Denies swollen glands. [] Psychiatric: Denies depression or anxiety. [] Heart Score: Risk Factors: Risk Factors: DM, Current or recent (<one month) smoker, HTN, HLP, family history of CAD, obesity. Risk Scores: Score 0 - 3: 2.5% MACE over next 6 weeks - Discharge Home Score 4 - 6: 20.3% MACE over next 6 weeks - Admit for Clinical Observation Score 7 - 10: 72.7% MACE over next 6 weeks - Early Invasive Strategies Allergies: Allergies: Allergies Coded Allergies Type Severity Reaction Last Updated Verified Penicillins Allergy Intermediate rash 03/09/15 Yes nitroglycerin Allergy Intermediate bp drops 03/09/15 Yes Physical Exam: PE: Constitutional: Well developed, well nourished, no acute distress, non-toxic appearance. [] HENT: Normocephalic, atraumatic, bilateral external ears normal, oropharynx moist, no oral exudates, nose normal. [] Eyes: PERRLA, EOMI, conjunctiva normal, no discharge. [] Neck: Normal range of motion, no tenderness, supple, no stridor. [] Cardiovascular:Heart rate regular rhythm, no murmur [] Lungs & Thorax: Bilateral breath sounds clear to auscultation [] Abdomen: Bowel sounds normal, soft, no tenderness, no masses, no pulsatile masses. [] Skin: Warm, dry, no erythema, no rash. [] Back: No tenderness, no CVA tenderness. [] Extremities: No tenderness, no cyanosis, no clubbing, ROM intact, bilateral lower 1+ nonpitting edema. [] Neurologic: Alert and oriented X 3, normal motor function, normal sensory function, no focal deficits noted. [] Psychologic: Affect normal, judgement normal, mood normal. [] Current Patient Data: Vital Signs: Vital Signs Date Time Temp Pulse Resp B/P (MAP) Pulse Ox O2 Delivery O2 Flow Rate FiO2 09/03/19 14:11 99.1 20 166/89 (114) 95 Room Air 99.1 EKG: EKG: [] Radiology/Procedures: Radiology/Procedures: [] Impression: [facility] [address] [place], [place] [id number] IMAGING REPORT Signed PATIENT: AVINASH STRAUSS: [id number] : 1960 LOCATION: ER AGE: 59 SEX: M EXAM STATUS: REG ER ORD. PHYSICIAN: CONNOR FAUST APRN REASON: right leg pain, no known injury PROCEDURE: KNEE RIGHT 4V Right knee 4 views. HISTORY: Right leg pain 4 views were taken of the right knee. There is evidence of osteoarthritis. There is hypertrophic spurring. There is a prominent subchondral cyst in the medial tibial plateau. There is mild spurring on the patella. There is no joint effusion. There is joint space narrowing of the patellofemoral compartment. IMPRESSION: 1. Osteoarthritis right knee. Electronically signed by: Pancho Johnson MD (09/03/2019 3:00 PM) [facility] DICTATED and SIGNED BY: PANCHO JOHNSON MD DATE: 09/03/[address] [facility] [address] [place] [address] IMAGING REPORT Signed PATIENT: ALICIA STRAUSSOUNT: [id number] : 1960 LOCATION: ER AGE: 59 SEX: M EXAM STATUS: REG ER ORD. PHYSICIAN: CONNOR FAUST APRN REASON: pain PROCEDURE: VENOUS LOWER EXTREMITY RIGHT Examination: Right Lower Extremity Venous Doppler Ultrasound History: Right leg pain Comparison: None Procedure: Vanessa scale, color flow 2D and spectal waveform analysis images are obtained with and without compression in the area of the common femoral vein, superficial femoral vein - femoral vein junction, main femoral vein (superficial femoral vein) and popliteal vein. Veins of the proximal calf are also imaged. Findings: There is normal duplex flow, color flow and compressibility of all visualized vein segments. No evidence of deep venous thrombus is present. Impression: No evidence of DVT in the right lower extremity venous system. Electronically signed by: Gaetano Gray MD (09/03/2019 2:44 PM) [id number] DICTATED and SIGNED BY: GAETANO GRAY MD DATE: 09/03/19 1444 Course & Med Decision Making: Course & Med Decision Making Pertinent Labs and Imaging studies reviewed. (See chart for details) No unilateral swelling. Patient is diabetic and states he has intermittent tingling in his fingertips and in his feet at times. He states when he has his arm raised up for too long if he is talking on the phone that his arm will feel like it is falling asleep. Alert and oriented. Ambulatory with a steady gait. Denies any back pain or neck pain. Denies falling or any injury. No swelling of the right knee joint, no tenderness, no deformity, no bruising, no redness, no heat. No laxity in the joint. No calf tenderness. Full range of motion of the right knee. Bilateral 1+ swelling of the lower extremities nonpitting. Patient has full sensations. 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 Full range of motion's. [] Dragon Disclaimer: Dragon Disclaimer: This electronic medical record was generated, in whole or in part, using a voice recognition dictation system. Departure Departure Impression: Primary Impression: Knee pain, right Qualified Codes: M25.561 - Pain in right knee; G89.29 - Other chronic pain Additional Impression: Sciatica Qualified Codes: M54.31 - Sciatica, right side Disposition: HOME, SELF-CARE Condition: STABLE Referrals: NO PCP (PCP) KAM DECKER MD Patient Instructions: Osteoarthritis, Sciatica with Rehab[facility] Additional Instructions: Follow-up with orthopedic doctor. Follow-up with your primary care doctor. Take medications as prescribed. Scripts Hydrocodone/Apap 5-325 (NORCO 5-325 TABLET) 1 Each Tablet 1 TAB PO PRN Q6HRS PRN for PAIN, #10 TAB 0 Refills Prov: CONNOR FAUST APRN 09/03/19 Justicifation of Admission Dx: Justifications for Admission: Justification of Admission Dx: N/A CONNOR FAUST APRN Sep 03, 2019 14:26
--- NOTE | 2019-09-03 14:47 | RAD ---
Examination: Right Lower Extremity Venous Doppler Ultrasound History: Right leg pain Comparison: None Procedure: Vanessa scale, color flow 2D and spectal waveform analysis images are obtained with and without compression in the area of the common femoral vein, superficial femoral vein - femoral vein junction, main femoral vein (superficial femoral vein) and popliteal vein. Veins of the proximal calf are also imaged. Findings: There is normal duplex flow, color flow and compressibility of all visualized vein segments. No evidence of deep venous thrombus is present. Impression: No evidence of DVT in the right lower extremity venous system. Electronically signed by: Gaetano Gray MD (09/03/2019 2:44 PM) [id number]
--- NOTE | 2019-09-03 15:03 | RAD ---
Right knee 4 views. HISTORY: Right leg pain 4 views were taken of the right knee. There is evidence of osteoarthritis. There is hypertrophic spurring. There is a prominent subchondral cyst in the medial tibial plateau. There is mild spurring on the patella. There is no joint effusion. There is joint space narrowing of the patellofemoral compartment. IMPRESSION: 1. Osteoarthritis right knee. Electronically signed by: Pancho Johnson MD (09/03/2019 3:00 PM) [facility]
[2019-09-03] MEDS ORDERED: HYDR-3164 PO (15:32)
== END 2019-09-03 16:05 | disposition home or self-care (01) ==
LOC: ER 13:38
DX: M54.31 Sciatica, right side (principal); M25.561 Pain in right knee; G89.29 Other chronic pain; I11.9 Hypertensive heart disease without heart failure; I25.2 Old myocardial infarction; E11.9 Type 2 diabetes mellitus without complications; E78.00 Pure hypercholesterolemia, unspecified; Z98.890 Other specified postprocedural states; Z87.891 Personal history of nicotine dependence; Z88.0 Allergy status to penicillin; Z88.8 Allergy status to other drugs, medicaments and biological substances
CPT/HCPCS: 73564; 93971; 99284

== ENCOUNTER 2020-11-05 10:33 | Emergency (ER) | payer OTHER ==
[~2020-11-05] VITALS: Ht 152.4 cm; Wt 106.1 kg
[~2020-11-05 10:33] MED LIST changes: -LISI-334 PO; +LISI20TA18 PO
[2020-11-05] MEDS ORDERED: IV NORMAL SALINE 1000ML BAG 1,000 ML IV ONE (11:45)
[2020-11-05 12:00] LABS: BILIRUBIN,URINE NEGATIVE (NEG); CLARITY,URINE CLEAR; COLOR,URINE YELLOW; NITRITE,URINE NEGATIVE (NEG); PH,URINE 5.5 (<5.0-8.0); PROTEIN,URINE NEGATIVE (NEG-TRACE); UROBILINOGEN,URINE 0.2 mg/dL (0.2 mg/dL)
--- NOTE | 2020-11-05 12:09 | RAD ---
EXAM: XR CHEST 1V 11/05/2020 11:47 AM CLINICAL INDICATION: Shortness of air COMPARISON: None TECHNIQUE: AP view of the chest FINDINGS: Heart is at the upper limit of normal in size. Lungs are adequately expanded. No consolida tion, pleural effusion or pneumothorax. No acute osseous abnormality. IMPRESSION: No acute cardiopulmonary abnormality. Electronically signed by: Joie Aguilar MD (11/05/2020 12:06 PM) [id number]
[2020-11-05 12:10] LABS: BACTERIA,URINE 0 /HPF (0-FEW); RBC,URINE 0 /HPF (0-2); WBC,URINE 0 /HPF (0-4)
--- NOTE | 2020-11-05 12:11 | RAD ---
EXAM: CT head without contrast INDICATION: Headache, dizziness COMPARISON: CT head 08/29/2019 TECHNIQUE: Axial CT imaging through the head without intravenous contrast. Coronal reformats were obt ained. One or more of the following individualized dose reduction techniques were utilized for this examinat ion: 1. Automated exposure control 2. Adjustment of the mA and/or kV according to patient size 3. Use of iterative reconstruction technique. FINDINGS: The ventricles and sulci are within normal limits. There is mild periventricular white matter hypoatt enuation. [place]-white matter differentiation is maintained. There is no intracranial hemorrhage, acute infarct, or mass lesion. Basal cisterns are clear. The skull is intact. There is an unchanged 1.2 cm right frontal scalp lesion, likely a sebaceous cyst . Paranasal sinuses and mastoid air cells are clear. Globes and orbits are intact. IMPRESSION: No acute intracranial abnormality. Electronically signed by: Joie Aguilar MD (11/05/2020 12:09 PM) [id number]
--- NOTE | 2020-11-05 12:34 | PHYS DOC ---
Past Medical History Past Medical History: CAD, Diabetes-Type II, High Cholesterol, Hypertension, [place], Other Additional Past Medical Histor: SEPSIS Past Surgical History: Appendectomy Additional Past Surgical Histo: rt arm surgery, CARDIAC stent Smoking Status: Never Smoker Alcohol Use: Occasionally Drug Use: None General Adult EDM: Chief Complaint: HYPERTENSION HPI: HPI: Patient is a 60 year old male presents with report of dizziness x 2-3 weeks. Reports also with headache which started last night. Patient reports concern about his blood pressure and his blood sugars. Reports history of hypercholesterolemia and DM. Reports he doesn't check his sugars like he should and a friend recently told him if he didn't get it under control he would lose his sight and a limb. Patient also was told a few months ago in [place] that he might have hypertension. Reports he was not started on any medication however. Patient does report some increased life stressors recently. Reports he has problems sleeping at night. Reports he starts to feel like he can't breathe. Patient reports he recently was seen at [facility] and had a "stroke workup" due to facial numbness and bilateral hand numbness. Reports he hasn't had this happen again. Review of Systems: Review of Systems: Constitutional: Denies fever or chills Eyes: Denies change in visual acuity, redness, or eye pain HENT: Denies nasal congestion or sore throat Respiratory: Denies cough; reports intermittent shortness of breath Cardiovascular: Denies chest pain or palpitations GI: Denies abdominal pain, nausea, vomiting, or diarrhea : Denies dysuria or hematuria Musculoskeletal: Denies back pain or joint pain Integument: Denies rash or skin lesions Neurologic: Reports headache; denies focal weakness or sensory changes Complete systems were reviewed and found to be within normal limits, except as documented in this note. Heart Score: C/O Chest Pain: N/A Current Medications: Current Medications Medications (Trade) Dose Ordered Sig/Cecile Start Time Stop Time Status Last Admin Dose Admin Sodium Chloride 1,000 ml @ 1,000 mls/hr 1X ONCE 11/05/20 11:45 11/05/20 12:44 Allergies: Allergies: Allergies Coded Allergies Type Severity Reaction Last Updated Verified Penicillins Allergy Intermediate rash 03/09/15 Yes nitroglycerin Allergy Intermediate bp drops 03/09/15 Yes Physical Exam: PE: Constitutional: Well developed, well nourished, no acute distress, non-toxic appearance HENT: Normocephalic, atraumatic Eyes: PERRL, EOMI, conjunctiva normal, no discharge Neck: Normal range of motion, no tenderness, supple Lungs & Thorax: Equal chest rise and fall, no respiratory distress Abdomen: Soft, no tenderness Skin: Warm, dry, no erythema, no rash Back: No tenderness, no CVA tenderness Extremities: No tenderness, ROM intact, no edema Neurologic: Alert and oriented X 3, motor and sensory functions intact, no focal deficits noted Psychologic: Affect anxious, judgement normal Current Patient Data: Labs: Laboratory Tests Test 11/05/20 11:50 Urine Collection Type Unknown Urine Color Yellow Urine Clarity Clear Urine pH 5.5 (<5.0-8.0) Urine Specific [place] 1.015 (1.000-1.030) Urine Protein Negative mg/dL (NEG-TRACE) Urine Glucose (UA) Negative mg/dL (NEG) Urine Ketones (Stick) Negative mg/dL (NEG) Urine Blood Negative (NEG) Urine Nitrite Negative (NEG) Urine Bilirubin Negative (NEG) Urine Urobilinogen Dipstick 0.2 mg/dL (0.2 mg/dL) Urine Leukocyte Esterase Negative (NEG) Urine RBC 0 /HPF (0-2) Urine WBC 0 /HPF (0-4) Urine Bacteria 0 /HPF (0-FEW) Vital Signs: Vital Signs Date Time Temp Pulse Resp B/P (MAP) Pulse Ox O2 Delivery O2 Flow Rate FiO2 11/05/20 11:05 97.8 61 18 182/99 (126) 98 Room Air 97.8 EKG: EKG: @1301 Sinus bradycardia at 53bpm, NO ST elevation, QRS 98ms, QT/QTc 428/404ms Radiology/Procedures: Radiology/Procedures: PROCEDURE: PORTABLE CHEST 1V EXAM: XR CHEST 1V 11/05/2020 11:47 AM CLINICAL INDICATION: Shortness of air COMPARISON: None TECHNIQUE: AP view of the chest FINDINGS: Heart is at the upper limit of normal in size. Lungs are adequately expanded. No consolidation, pleural effusion or pneumothorax. No acute osseous abnormality. IMPRESSION: No acute cardiopulmonary abnormality. Electronically signed by: Joie Aguilar MD (11/05/2020 12:06 PM) [id number] PROCEDURE: CT HEAD WO CONTRAST EXAM: CT head without contrast INDICATION: Headache, dizziness COMPARISON: CT head 08/29/2019 TECHNIQUE: Axial CT imaging through the head without intravenous contrast. Coronal reformats were obtained. One or more of the following individualized dose reduction techniques were utilized for this examination: 1. Automated exposure control 2. Adjustment of the mA and/or kV according to patient size 3. Use of iterative reconstruction technique. FINDINGS: The ventricles and sulci are within normal limits. There is mild periventricular white matter hypoattenuation. [place]-white matter differentiation is maintained. There is no intracranial hemorrhage, acute infarct, or mass lesion. Basal cisterns are clear. The skull is intact. There is an unchanged 1.2 cm right frontal scalp lesion, likely a sebaceous cyst. Paranasal sinuses and mastoid air cells are clear. G lobes and orbits are intact. IMPRESSION: No acute intracranial abnormality. Electronically signed by: Joie Aguilar MD (11/05/2020 12:09 PM) [id number] Course & Med Decision Making: Course & Med Decision Making Pertinent Labs and Imaging studies reviewed. (See chart for details) Patient presents with report of dizziness and headache. Patient neurologically intact. Appears anxious. BP elevated but improved during evaluation without intervention. CT head without acute process. CXR stable. EKG stable. Labs obtained and posted to chart. Patient stable for discharge home with outpatient follow-up with PCP. Discussed findings and plan with patient and spouse, who acknowledge understanding and agreement. Cam Disclaimer: Cam Disclaimer: This electronic medical record was generated, in whole or in part, using a voice recognition dictation system. Departure Departure Impression: Primary Impression: Hypertension Qualified Codes: I10 - Essential (primary) hypertension Additional Impressions: Anxiety Dizziness Disposition: 01 HOME / SELF CARE / HOMELESS Condition: STABLE Referrals: NO PCP (PCP) JOHNATHAN HOLDER MD Patient Instructions: Anxiety and Panic Attacks, Bomr-[id number], Cardiac Diet, [id number], Diet - 2000 Calorie Diabetic, Dizziness, [id number], Hypertension, [id number] Additional Instructions: Please take your medication as directed. You may need some adjustment of your medications. This is best done with your family doctor because they can follow with you and make further adjustments as needed. NIHSS Stroke Scale NIH Stroke Scale: NIH Stroke Scale Response (Comments) Value Level of Consciousness: 0 Alert/Responsive 0 LOC Questions: 0 Answers both correctly 0 LOC Commands: 0 Performs both tasks 0 Best Gaze: 0 Normal 0 Visual: 0 No visual loss 0 Facial Palsy: 0 Normal, symmetrical 0 Motor - Left Arm 0 No drift 0 Motor - Right Arm 0 No drift 0 Motor - Left Leg 0 No drift 0 Motor: Right Leg 0 No drift 0 Limb Ataxia: 0 Absent 0 Sensory: 0 No loss 0 Best Language: 0 Normal 0 Dysathria: 0 Normal 0 Extinction and Inattention: 0 Normal 0 Total 0 YOUNGKELLY DO Nov 05, 2020 12:34
[2020-11-05 12:56] LABS: BASO % 1 % (0-3); EOS # 0.1 x10^3/uL (0.0-0.7); EOS % 1 % (0-3); HEMATOCRIT 47.1 % (39.0-53.0); HEMOGLOBIN 16.3 g/dL (13.0-17.5); LYMPH # 1.3 x10^3/uL (1.0-4.8); LYMPH % 19 % (24-48); MEAN CORPUSCULAR HEMOGLOBIN 31 pg (25-35); MEAN CORPUSCULAR HGB CONC 35 g/dL (31-37); MEAN CORPUSCULAR VOLUME 89 fL (79-100); MONO # 0.8 x10^3/uL (0.0-1.1); MONO % 11 % (0-9); NEUT # 4.8 x10^3/uL (1.8-7.7); NEUT % 68 % (31-73); PLATELET COUNT 196 x10^3/uL (140-400); RED BLOOD COUNT 5.32 x10^6/uL (4.30-5.70); RED CELL DISTRIBUTION WIDTH 14.9 % (11.5-14.5)
[2020-11-05 13:12] LABS: CALCIUM 9.4 mg/dL (8.5-10.1); CREATININE 0.8 mg/dL (0.7-1.3); GFR 99.3
[2020-11-05 13:21] LABS: ALBUMIN 3.7 g/dL (3.4-5.0); ALBUMIN/GLOBULIN RATIO 0.9 (1.0-1.7); MAGNESIUM 1.9 mg/dL (1.8-2.4); TOTAL BILIRUBIN 0.7 mg/dL (0.2-1.0); TOTAL PROTEIN 7.8 g/dL (6.4-8.2)
[2020-11-05 14:48] VITALS: BP 137/87
== END 2020-11-05 14:48 | disposition home or self-care (01) ==
LOC: ER 10:33
DX: I10 Essential (primary) hypertension (principal); F41.9 Anxiety disorder, unspecified; R42 Dizziness and giddiness; I25.10 Atherosclerotic heart disease of native coronary artery without angina pectoris; E11.9 Type 2 diabetes mellitus without complications; E78.00 Pure hypercholesterolemia, unspecified; I25.2 Old myocardial infarction; Z90.89 Acquired absence of other organs; Z88.0 Allergy status to penicillin; Z88.8 Allergy status to other drugs, medicaments and biological substances
CPT/HCPCS: 36415; 70450; 71045; 80053; 81001; 83690; 83735; 83880; 84484; 85025; 93005; 96360; 99285; J7030